=== PATIENT | male | born 1985 | race Caucasian/White ===

== ENCOUNTER 2016-11-14 10:03 | Emergency (ER) | payer SELFPAY ==
[~2016-11-14] VITALS: Ht 172.7 cm; Wt 89.0 kg
[2016-11-14 11:50] VITALS: BP 117/64
[2016-11-14 12:33] LABS: BLOOD UREA NITROGEN 14 mg/dL (7-18)
[2016-11-14 12:42] LABS: IS PT STATUS REG ER OR PRE ER? YES
== END 2016-11-14 13:32 | disposition home or self-care (01) ==
LOC: ED 13:20
DX: I10 Essential (primary) hypertension (principal); R07.89 Other chest pain; F17.210 Nicotine dependence, cigarettes, uncomplicated
CPT/HCPCS: 36415; 70450; 71010; 80048; 82040; 84484; 85025; 93005; 99285

== ENCOUNTER 2016-11-15 12:26 | Emergency (ER) | payer SELFPAY ==
[~2016-11-15] VITALS: Ht 165.1 cm; Wt 89.4 kg
[2016-11-15] MEDS ORDERED: MAALOX/HYOSCYAMINE/LIDOCAINE 45 ML BOTTLE PO ONE (13:30)
[2016-11-15] MEDS ORDERED: SODIUM CHLORIDE FLUSH 10ML SYR IVF ONE (13:30)
[2016-11-15] MEDS ORDERED: MAALOX/HYOSCYAMINE/LIDOCAINE 45 ML BOTTLE ONE (13:41)
[2016-11-15 13:49] LABS: BLOOD UREA NITROGEN 13 mg/dL (7-18)
[2016-11-15 13:53] LABS: IS PT STATUS REG ER OR PRE ER? YES
[2016-11-15 14:46] VITALS: BP 114/57
== END 2016-11-15 14:50 | disposition home or self-care (01) ==
LOC: ED 14:47
DX: R07.89 Other chest pain (principal); F10.10 Alcohol abuse, uncomplicated; F17.210 Nicotine dependence, cigarettes, uncomplicated
CPT/HCPCS: 36415; 71010; 80048; 82040; 84484; 85025; 93005; 99285